=== PATIENT | female | born 1980 | race Caucasian/White ===

== ENCOUNTER → 2016-09-22 | Outpatient (CLI) | payer BC | LOC: HPND 08:44 | PROVIDERS: ATTEND Obstetrics & Gynecology | DX: O09.521 Supervision of elderly multigravida, first trimester (principal); O30.041 Twin pregnancy, dichorionic/diamniotic, first trimester; O09.291 Supervision of pregnancy with other poor reproductive or obstetric history, first trimester | CPT/HCPCS: 36416; 76813; 76814 ==

== ENCOUNTER → 2016-10-06 | Outpatient (CLI) | payer BC | LOC: HPND 13:33 | PROVIDERS: ATTEND Obstetrics & Gynecology | DX: O30.032 Twin pregnancy, monochorionic/diamniotic, second trimester (principal); O09.522 Supervision of elderly multigravida, second trimester; O34.212 Maternal care for vertical scar from previous cesarean delivery | CPT/HCPCS: 76815; 76817; 76820 ==

== ENCOUNTER → 2016-10-20 | Outpatient (CLI) | payer BC | LOC: HPND 13:34 | PROVIDERS: ATTEND Obstetrics & Gynecology | DX: O30.032 Twin pregnancy, monochorionic/diamniotic, second trimester (principal); O09.522 Supervision of elderly multigravida, second trimester; O34.212 Maternal care for vertical scar from previous cesarean delivery | CPT/HCPCS: 76811; 76812; 76817 ==

== ENCOUNTER → 2016-11-03 | Outpatient (CLI) | payer BC | LOC: HPND 13:34 | PROVIDERS: ATTEND Obstetrics & Gynecology | DX: O30.032 Twin pregnancy, monochorionic/diamniotic, second trimester (principal); O09.522 Supervision of elderly multigravida, second trimester; O36.5120 Maternal care for known or suspected placental insufficiency, second trimester, not applicable or unspecified | CPT/HCPCS: 76815; 76817 ==

== ENCOUNTER → 2016-11-17 | Outpatient (CLI) | payer BC | LOC: HPND 13:29 | PROVIDERS: ATTEND Obstetrics & Gynecology | DX: O09.522 Supervision of elderly multigravida, second trimester (principal); O36.5120 Maternal care for known or suspected placental insufficiency, second trimester, not applicable or unspecified; Z3A.21 21 weeks gestation of pregnancy | CPT/HCPCS: 76816; 76817; 76825; 76827; 93325 ==

== ENCOUNTER → 2016-12-01 | Outpatient (CLI) | payer BC | LOC: HPND 13:31 | PROVIDERS: ATTEND Obstetrics & Gynecology | DX: O30.032 Twin pregnancy, monochorionic/diamniotic, second trimester (principal); O09.522 Supervision of elderly multigravida, second trimester; O34.212 Maternal care for vertical scar from previous cesarean delivery; Z3A.00 Weeks of gestation of pregnancy not specified | CPT/HCPCS: 76815; 76817 ==

== ENCOUNTER → 2016-12-16 | Outpatient (CLI) | payer BC | LOC: HPND 12:13 | PROVIDERS: ATTEND Obstetrics & Gynecology | DX: O09.522 Supervision of elderly multigravida, second trimester (principal); O30.032 Twin pregnancy, monochorionic/diamniotic, second trimester; O34.212 Maternal care for vertical scar from previous cesarean delivery; Z3A.25 25 weeks gestation of pregnancy | CPT/HCPCS: 76816 ==

== ENCOUNTER → 2016-12-30 | Outpatient (CLI) | payer BC | LOC: HPND 13:01 | PROVIDERS: ATTEND Obstetrics & Gynecology | DX: O30.032 Twin pregnancy, monochorionic/diamniotic, second trimester (principal); O09.522 Supervision of elderly multigravida, second trimester; O34.212 Maternal care for vertical scar from previous cesarean delivery | CPT/HCPCS: 76815 ==

== ENCOUNTER → 2017-01-13 | Outpatient (CLI) | payer BC | LOC: HPND 07:49 | PROVIDERS: ATTEND Obstetrics & Gynecology | DX: O30.032 Twin pregnancy, monochorionic/diamniotic, second trimester (principal); O09.522 Supervision of elderly multigravida, second trimester; O34.212 Maternal care for vertical scar from previous cesarean delivery | CPT/HCPCS: 76816 ==

== ENCOUNTER 2017-02-18 05:35 | Inpatient (IN) | payer BC ==
[2017-02-18] VITALS (69 sets, daily range): BP systolic 91–122; BP diastolic 56–79; PULSE 67–104; RESP 16–18; TEMP 97.1–98.9; O2SAT 98–100
[~2017-02-18] VITALS: Ht 175.3 cm; Wt 95.3 kg
--- NOTE | 2017-02-18 06:10 | PD ---
HPI Chief Complaint contractions? Date Seen: Feb 18, 2017 Travel History International Travel<30 Days: No Contact w/Intl Traveler<30Days: No History of Present Illness HPI Ms. Nazario is a 36 yo [address] Campbell at 35 1/7 weeks ( VALERY 2016) presents with concern for contractions. Patient states that approximately 3AM this morning she began having stronger and more frequent contractions concerning her for possible labor. Patient states that she has periodically been having "Nehemias Thomason" contractions but these current contractions seem more significant to her. Patient also reported desire to bear down which concerned her. Patient does not report vaginal bleeding or loss of vaginal fluid. Patient reports normal movement. Patient does not report headache, visual changes, chest pain, shortness of breath, nausea/vomiting, or dysuria. Patient reports that she is scheduled for CS at 36 weeks due to history of abruption. Patient reports benign course thus far. Patient reports ultrasound studies have been reassuring regarding mono-di twins. [Per EMR, US 02/16 demonstrated the fetuses with normal CLIFF, normal BPP, and normal Doppler studies]. Para: 2 : 4 Miscarriage: 1 History Past Medical History Medical History: Denies Significant Hx Obstetric History Obstetric History 012 Prior at 38 weeks due to distress Repeat at 37 weeks due to placental abruption One miscarriage elevated 1 hr glucose this gestation Past Surgical History Narrative Surgical section 2 Family History Family History: Negative Social History Alcohol Use: No Tobacco Use: No Substance Abuse: No Review of Systems General / Constitutional: No: Fever Eyes: No: Blurred Vision HENT: No: Headaches Cardiovascular: No: Chest Pain or Discomfort Respiratory: No: Short of Breath Gastrointestinal: Abdominal Pain, No: Nausea, Vomiting Genitourinary: No: Urgency, Dysuria Skin: No Rash Neurologic: No: Weakness Psychiatric: No: Anxiety, Depression Physical Exam HR 93 BP 124/80 RR 18 HR 96 Narrative GENERAL: Well-nourished, well-developed patient. SKIN: Warm and dry. HEAD: Normocephalic and atraumatic. EYES: No scleral icterus. No injection or drainage. ENT: No nasal drainage noted. Mucous membranes pink. Airway patent. NECK: Supple, trachea midline. No JVD. CARDIOVASCULAR: Regular rate and rhythm without murmurs. RESPIRATORY: Breath sounds equal bilaterally. No accessory muscle use. EXTREMITIES: No cyanosis or edema. NEUROLOGICAL: Awake and alert. Motor and sensory function grossly within normal limits. ABDOMEN/GI: Abdomen soft, non-tender, bowel sounds present, no rebound, no guarding. Intermittent pain Gravid GENITOURINARY: External Genitalia: intact and normal in appearance Cervix: Dilatation: Closed Effacement: thick Station: [-] Presentation: [-] Membranes: Intact Uterine Contractions: q3 FHT's Red Category: 1 Baseline: 145 Reactive: Y Variability: Mod Decels: None FHT's Blue Category: 1 Baseline: 135 Reactive: Y Variability: Mod Decels: None MDM Medical Record Reviewed: Yes Narrative Course / MDM 36 [address] Campbell at 35 1/7 weeks ( [facility]ERY 03/25/2017) presents with concern for contractions. -Contractions every 3 minutes -[place]-di twins -Both twins with category 1 tracing -Cervix closed, high -Per patient, plan for CS at 36 wks due to PMH abruption and current twin gestation Plan: -Continue EFM -Will determine options of tocolysis vs. delivery pending discussion between Dr. Levi and Dr. Nancy Parrish,Konstantin Santo MD, R3 Feb 18, 2017 06:10
--- NOTE | 2017-02-18 07:06 | PD ---
HPI Chief Complaint Complains of contractions, twin gestation Date Seen: Feb 18, 2017 Travel History International Travel<30 Days: No Contact w/Intl Traveler<30Days: No History of Present Illness HPI Patient is 36-year-old white female A1 at 35 weeks with twins presents complaining of contractions. She has no bleeding or leakage of fluid. Baby is active. heart rate tracings are reactive. And she was christal on the monitor. Patient has a history of 2 C-sections and is planned scheduled for in 5 days when she'll be 36 weeks gestation and according the patient she's been sectioned early because of her history of placental abruption with her last baby did require an emergency also had a history of preeclampsia with her first baby that required a that time and she may have had an abruption as well at that time Para: 2 : 4 History Obstetric History Obstetric History Preeclampsia and placental abruption in the past She had 2 sections in the past She has mono chorionic diamniotic twins now Past Surgical History Narrative Surgical C-sections 2 Social History Alcohol Use: No Tobacco Use: No Substance Abuse: No Review of Systems General / Constitutional: No: Fever, Weight Gain, Chills, Other Eyes: No: Diploplia, Blurred Vision, Visual changes, Pain, Photophobia HENT: No: Headaches, Vertigo, Lightheadedness Cardiovascular: No: Irregular Rhythm, Chest Pain or Discomfort, Palpitations, Tachycardia, Syncope, Varicosities, Edema, Cyanosis Respiratory: No: Cough, Short of Breath, Other Gastrointestinal: Abdominal Pain, No: Nausea, Vomiting, Diarrhea Genitourinary: No: Decreased Urinary Output, Oliguria Musculoskeletal: No: Limited ROM, Weakness, Cramping, Edema, Pain Skin: No Rash, No Itching, No Dryness, No Lumps, No Change in Pigmentation, No Change in Nails, No Alopecia, No Lesions Neurologic: No: Weakness, Dizziness, Syncope, Focal Abnormalities, Coordination Problem, Headache, Slurred Speech, Seizures Psychiatric: No: Depression, Suicidal Ideations, Homicidal Ideation Endocrine: No: Heat Intolerance, Cold Intolerance, Polydipsia, Polyuria, Other Physical Exam Narrative GENERAL: Well-nourished, well-developed patient. SKIN: Warm and dry. HEAD: Normocephalic and atraumatic. EYES: No scleral icterus. No injection or drainage. ENT: No nasal drainage noted. Mucous membranes pink. Airway patent. NECK: Supple, trachea midline. No JVD. CARDIOVASCULAR: Regular rate and rhythm without murmurs, gallops, or rubs. RESPIRATORY: Breath sounds equal bilaterally. No accessory muscle use. BREASTS: Bilateral exam showed no masses , no retractions, no nipple discharge. ABDOMEN/GI: Abdomen soft, non-tender, bowel sounds present, no rebound, no guarding Gravid to [-40] weeks size Fundal Height: [40-]twins GENITOURINARY: External Genitalia: intact and normal in appearance BUS glands: [-] Cervix: [-Closed] Dilatation: [-] Closed Effacement: [-] Thick Station: [-High] Presentation: [-] Membranes: [intact ] Uterine Contractions: [q 3 min-] FHT's: Category: [-1] Baseline: [-135 /140] Reactive: [yes-] Variability: [mod-] Decels: [-none] EXTREMITIES: No cyanosis or edema. BACK: Nontender without obvious deformity. No CVA tenderness. NEUROLOGICAL: Awake and alert. Motor and sensory grossly within normal limits. Five out of 5 muscle strength in all muscle groups. Normal speech. MDM Interpretation(s) Patient is 36-year-old white female previous 2 at 35 weeks with twins now presents complaining of contractions. No leakage of fluid or bleeding noted. She is christal, and the baby's heart rate tracings are reactive. Patient states that if she was told she had contraction she was coming and having her and is what she wants I offered trying to tocolyse her with some fluid and terbutaline she will have none that so we will discuss her care with her primary precision assembler Plan Plan the patient to be admitted labor and delivery we'll discuss with her precision assembler her plan of care Diagnosis Diagnosis: Primary Impression: Multiple gestation Additional Impression: uterine contractions in third trimester, antepartum Jeremiah Levi II, MD Feb 18, 2017 07:05
[2017-02-18 08:14] LABS: AUTOMATED NEUTROPHIL # 7.5 TH/MM3 (1.8-7.7); BASOPHIL % 0.3 % (0.0-2.0); EOSINOPHIL # 0.1 TH/MM3 (0-0.4); EOSINOPHIL % 1.4 % (0.0-4.0); HEMATOCRIT 39.4 % (35.0-46.0); HEMO FLAGS DIFF FINAL; LYMPH % 16.7 % (9.0-44.0); LYMPHOCYTE # 1.7 TH/MM3 (1.0-4.8); MEAN CELL VOLUME 90.4 FL (80.0-100.0); MEAN CORPUSCULAR HEMOGLOBIN 30.7 PG (27.0-34.0); MONO % 7.6 % (0.0-8.0); PLATELET COUNT 151 TH/MM3 (150-450); RED BLOOD COUNT 4.35 MIL/MM3 (4.00-5.30); RED CELL DISTRIBUTION WIDTH 13.5 % (11.6-17.2); WHITE BLOOD COUNT 10.1 TH/MM3 (4.0-11.0)
[2017-02-18] MEDS ORDERED: LACTATED RINGER'S 1000 ML INJ 1,000 ML IV ONE (08:16)
[2017-02-18] MEDS ORDERED: LACTATED RINGER'S 1000 ML INJ 1,000 ML IV SCH ×2 (08:46→19:45)
[2017-02-18] MEDS ORDERED: ceFAZolin 2 GM PREMIX 50 ML IV SCH (09:30)
[2017-02-18] MEDS ORDERED: CITRIC ACID-SODIUM CITRATE LIQ 30 ML UDC PO SCH (10:00)
[2017-02-18] MEDS ORDERED: OXYTOCIN 10 UNIT/ML AMP ONE (11:47)
[2017-02-18] MEDS ORDERED: MORPHINE SULFATE PF 5 MG/10 ML VIAL ONE ×2 (13:05→13:50)
[2017-02-18] MEDS ORDERED: SODIUM CHLORIDE 0.9% FLUSH 10 ML FLUSH IV FLUSH PRN (14:45)
[2017-02-18] MEDS ORDERED: ONDANSETRON HCL 4 MG/2 ML VIAL IV PUSH PRN (14:45)
[2017-02-18] MEDS ORDERED: KETOROLAC TROMETHAMINE 60 MG/2 ML (IM) VIAL IM PRN (14:45)
[2017-02-18] MEDS ORDERED: SIMETHICONE 80 MG CHEWABLE TAB PO PRN (14:45)
[2017-02-18] MEDS ORDERED: ZOLPIDEM TARTRATE 5 MG TAB PO PRN (14:45)
[2017-02-18] MEDS ORDERED: OXYTOCIN 30 UNITS-500ML PREMIX 500 ML IV ONE (14:45)
[2017-02-18] MEDS ORDERED: ACETAMINOPHEN 325 MG TAB PO PRN (14:45)
[2017-02-18] MEDS ORDERED: OXYTOCIN 30 UNITS-500ML PREMIX 500 ML ONE (16:06)
[2017-02-18] MEDS ORDERED: EPIDURAL-DO NOT ADMINISTER ANTICOAGULANTS PRN (19:00)
[2017-02-18] MEDS ORDERED: EPIDURAL-DIPHENHYDRAMINE HCL 50 MG/ML VIAL IV PUSH PRN (19:00)
[2017-02-18] MEDS ORDERED: EPIDURAL-DIPHENHYDRAMINE HCL 50 MG CAP PO PRN (19:00)
[2017-02-18] MEDS ORDERED: EPIDURAL-NALOXONE HCL 0.4 MG/ML AMP IV PRN (19:00)
[2017-02-18] MEDS ORDERED: EPIDURAL-NO SYSTEMIC NARCOTICS PRN (19:00)
[2017-02-18] MEDS: SODIUM CHLORIDE 0.9% FLUSH 10 ML FLUSH IV FLUSH SCH (21:10)
[2017-02-19] MEDS ORDERED: OXYTOCIN 30 UNITS-500ML PREMIX 500 ML IV PRN (00:45)
[2017-02-19 04:00] VITALS: BP 93/62; PULSE 86; RESP 16; TEMP 97.7
[2017-02-19] MEDS: IBUPROFEN 600 MG TAB PO PRN ×3 (04:02→21:10)
[2017-02-19 05:53] LABS: AUTOMATED NEUTROPHIL # 8.7 TH/MM3 (1.8-7.7); BASOPHIL % 0.3 % (0.0-2.0); EOSINOPHIL # 0.2 TH/MM3 (0-0.4); EOSINOPHIL % 1.4 % (0.0-4.0); HEMATOCRIT 34.7 % (35.0-46.0); HEMO FLAGS DIFF FINAL; LYMPH % 13.6 % (9.0-44.0); LYMPHOCYTE # 1.5 TH/MM3 (1.0-4.8); MEAN CELL VOLUME 90.5 FL (80.0-100.0); MEAN CORPUSCULAR HEMOGLOBIN 30.2 PG (27.0-34.0); MEAN CORPUSCULAR HGB CONC 33.4 % (32.0-36.0); MONO % 6.2 % (0.0-8.0); NEUT % 78.5 % (16.0-70.0); PLATELET COUNT 123 TH/MM3 (150-450); RED BLOOD COUNT 3.84 MIL/MM3 (4.00-5.30); RED CELL DISTRIBUTION WIDTH 13.4 % (11.6-17.2); WHITE BLOOD COUNT 11.1 TH/MM3 (4.0-11.0)
[2017-02-19 08:40] VITALS: BP 91/64; PULSE 79; RESP 18; TEMP 97.5
--- NOTE | 2017-02-19 09:55 | MP ---
cc: ADY LYNN DATE OF SURGERY: 02/18/2017 PREOPERATIVE DIAGNOSIS Intrauterine at 35+ weeks, diamniotic monochorionic twins, previous section x2, in labor. POSTOPERATIVE DIAGNOSIS Intrauterine at 35+ weeks, diamniotic monochorionic twins, previous section x2, in labor. PROCEDURE Repeat lower segment transverse section via Pfannenstiel skin incision, bilateral tubal ligation via modified [place]. SURGEON Dr. Lynn ANESTHESIA Spinal by Dr. Nazario. FLUIDS 1600 cc crystalloids. ESTIMATED BLOOD LOSS 650 cc. URINE OUTPUT 75 cc clear yellow at the end of the procedure. FINDINGS A live male was delivered vertex presentation, weight 4 pounds 11 ounces. Baby male B was delivered vertex presentation, weight was 5 pounds 2 ounces. Normal fallopian tubes bilaterally. DETAILS OF PROCEDURE The patient was taken to the operating room where spinal anesthesia was found to be adequate. She was then prepped and draped in normal sterile fashion in the dorsal supine position with a leftward tilt. A Pfannenstiel skin incision was made with a scalpel and carried down to the underlying layer of fascia. The fascia was nicked in the midline. The incision was extended laterally with curved Sanchez scissors. Attention was turned to the inferior aspect of the incision which was grasped with Magaly clamps, elevated and the rectus muscles dissected off sharply. Attention was turned to the superior aspect of the incision which was grasped with Magaly clamps, elevated and the rectus muscles dissected off sharply. The rectus muscles were in the midline. The peritoneum was identified, grasped between two Shanthi clamps and entered sharply with Metzenbaum scissors. This incision was extended superiorly and inferiorly with good visualization of the bladder. The bladder blade was inserted. The vesicouterine peritoneum was noted to be high on the uterus. This was grasped with smooth pickups. The bladder flap was created sharply using Metzenbaum scissors. The lower uterine segment was noted to be thinned out and very attenuated. At this time one incision was made to enter. Clear amniotic fluid was noted. The incision was extended laterally with bandage scissors. Baby A was identified, vertex presentation, brought to the incision and delivered. Cord was clamped x2 and cut. The infant was handed off to the awaiting nurse. The membranes for baby B were ruptured. Baby B was delivered vertex presentation. The cord was clamped x2 and cut. The infant was handed off to the awaiting nurse. The placenta was delivered manually and sent for donation. The uterus was cleared of all clots and debris. The uterine incision was repaired in two layers with #1 Vicryl. Hemostasis was assured. The left fallopian tube was identified, brought to the incision with a Dariana clamp, followed out to the fimbriated end. A 2 cm portion was tied x2 with 0 plain and excised. The tube was sent to pathology. The tube was returned to the abdomen. The right fallopian tube was identified, grasped with a Dariana clamp, followed out to the fimbriated end. A 2 cm portion was tied and excised in a similar fashion. The tube was returned to the abdomen. The gutters were cleared of all clots and debris. The fascia was re-approximated in a running fashion with 0 Vicryl. The skin was closed with kennedy. A pressure dressing was applied. Sponge, lap, needle and instrument counts were correct x3. The patient was transferred to the recovery room in stable condition. MD MARICEL Rodney/JAVIER /2:41 PM /9:40 AM
--- NOTE | 2017-02-19 10:11 | HHI.OB ---
Subjective Post Operative Day: 1 Remarks HAd n/v last night but she is feeling better this am; tolerated clear breakfast. She has ambulated, yet to void. Objective Vitals/I&O Vital Signs Date Time Temp Pulse Resp B/P Pulse Ox O2 Delivery O2 Flow Rate FiO2 02/19/17 08:40 97.5 79 18 91/64 02/19/17 04:00 97.7 86 16 93/62 02/18/17 22:40 67 16 101/57 02/18/17 22:40 97.1 02/18/17 20:51 98.9 76 16 96/60 02/18/17 16:45 97.9 76 16 98/67 02/18/17 16:01 97.7 83 18 91/56 100 02/18/17 15:45 80 18 96/56 99 02/18/17 15:35 84 02/18/17 15:33 18 93/58 98 02/18/17 15:19 88 18 98/57 99 02/18/17 15:02 97.7 02/18/17 15:00 78 97/57 02/18/17 15:00 18 100 02/18/17 13:25 96 02/18/17 13:20 90 02/18/17 13:15 94 02/18/17 13:10 98 02/18/17 13:00 96 02/18/17 12:55 94 02/18/17 12:50 87 02/18/17 12:45 95 02/18/17 12:40 95 02/18/17 12:35 87 02/18/17 12:30 94 02/18/17 12:25 91 02/18/17 12:20 92 02/18/17 12:15 95 02/18/17 12:10 97 02/18/17 12:05 95 02/18/17 12:00 89 02/18/17 11:57 98.6 02/18/17 11:55 92 02/18/17 11:55 18 122/79 02/18/17 11:50 90 02/18/17 11:45 100 02/18/17 11:40 90 02/18/17 11:35 98 02/18/17 11:30 104 02/18/17 10:40 90 02/18/17 10:35 95 02/18/17 10:30 92 02/18/17 10:25 90 02/18/17 10:20 92 02/18/17 10:15 92 02/18/17 10:10 100 Result Diagram: 02/19/17 0505 Objective Remarks GENERAL: Well-nourished, well-developed patient. CARDIOVASCULAR: Regular rate and rhythm without murmurs, gallops, or rubs. RESPIRATORY: Breath sounds equal bilaterally. No accessory muscle use. ABDOMEN/GI: Abdomen soft, non-tender, bowel sounds present. Incision: dressing Clean, dry and intact. Fundus: Firm, non-tender at umbilicus. GENITOURINARY: Light to moderate bleeding. EXTREMITIES: No cyanosis or edema, non-tender, without signs of DVT. Medications and IVs Current Medications Medications (Trade) Dose Ordered Sig/Melida Route Start Time Stop Time Status Last Admin (Lr 1000 ml Inj) 1,000 ml @ 100 mls/hr Q10H IV 02/18/17 19:45 02/19/17 15:44 02/18/17 21:00 (NS Flush) 2 ml BID IV FLUSH 02/18/17 21:00 02/18/17 21:10 (NS Flush) 2 ml UNSCH PRN IV FLUSH 02/18/17 14:45 (Mylicon Chew) 80 mg QID PRN PO 02/18/17 14:45 (Tylenol) 650 mg Q6H PRN PO 02/18/17 14:45 (Motrin) 600 mg Q6H PRN PO 02/18/17 14:45 02/19/17 04:02 (Percocet 5-325 Mg) 1 tab Q4H PRN PO 02/18/17 14:45 (Percocet 5-325 Mg) 2 tab Q4H PRN PO 02/18/17 14:45 (Aditi-Colace) 2 tab Q12H PRN PO 02/18/17 14:45 (Ambien) 5 mg HS PRN PO 02/18/17 14:45 (M-M-R Ii Inj) 0.5 ml ONCE ONCE SQ 02/19/17 16:00 02/19/17 16:01 (Boostrix Inj) 0.5 ml ONCE ONCE IM 02/19/17 16:00 02/19/17 16:01 (Zofran Inj) 4 mg Q6H PRN IV PUSH 02/18/17 14:45 02/18/17 21:07 Miscellaneous Information NO SYSTEMIC NARCOTICS TO BE GIVEN FO... UNSCH PRN .XX 02/18/17 19:00 02/19/17 18:59 (Narcan Inj) 0.4 mg UNSCH PRN IV 02/18/17 19:00 02/19/17 18:59 (Benadryl Inj) 25 mg Q6H PRN IV PUSH 02/18/17 19:00 02/19/17 18:59 (Benadryl) 50 mg Q6H PRN PO 02/18/17 19:00 02/19/17 18:59 Miscellaneous Information ALL NURSING DEPARTMENTS UNSCH PRN .XX 02/18/17 19:00 02/19/17 18:59 Assessment/Plan Problem List: (1) S/P repeat low transverse (2) Sterilization Assessment and Plan POD 1 s/p rltcd and btl. doing well, will increase ambulation and try to void. Will remove dressing after shower Verona Campbell MD Feb 19, 2017 10:11
[2017-02-19] MEDS ORDERED: IBUP-232 PO (15:38)
[2017-02-19] MEDS ORDERED: SENN1TAB PO (15:38)
[2017-02-19] MEDS ORDERED: OXYC1TAB63 PO (15:38)
--- NOTE | 2017-02-19 15:40 | HHI.DCPOC ---
Discharge Care Plan Diagnosis: (1) S/P repeat low transverse (2) Sterilization Your Health Problems Are: delivery Report Symptoms to Your Doctor -Temperature above 100.5 degrees -Redness, of incision or excessive or foul smelling drainage -Unusual pain or calf pain -Increased vaginal bleeding -Painful or difficulty urinating -Feelings of extreme sadness or anxiety after 2 weeks Goals to Promote Your Health * To prevent worsening of your condition and complications * To maintain your health at the optimal level Directions to Meet Your Goals Take your medications as prescribed Follow your dietary instruction Follow activity as directed Ensure plenty of rest for recovery Drink fluids for hydration Keep your appointments as scheduled Take your immunizations and boosters as scheduled If your symptoms worsen call your PCP, if no PCP go to Urgent Care Center or Emergency Room Smoking is Dangerous to Your Health. Avoid second hand smoke Call the 24-hour crisis hotline for domestic abuse at Verona Campbell MD Feb 19, 2017 15:40
[2017-02-19] MEDS ORDERED: DIPHTH/TETANUS/ACEL PERTUSSIS (BOOSTER) 0.5 ML VIAL/PFS IM ONE (16:00)
[2017-02-19] MEDS ORDERED: MEASLES, MUMPS, RUBELLA VACCINE 0.5 ML VIAL SQ ONE (16:00)
[2017-02-19] MEDS: oxyCODONE/ACETAMINOPHEN 5 MG/325 MG TAB PO PRN (21:11)
[2017-02-19] MEDS: DOCUSATE SODIUM 50 MG/SENNA 8.6 MG TAB PO PRN (21:14)
[2017-02-19 21:17] VITALS: BP 108/73; PULSE 88; RESP 18; TEMP 98.2
[2017-02-20] MEDS: oxyCODONE/ACETAMINOPHEN 5 MG/325 MG TAB PO PRN ×4 (04:42→21:45)
[2017-02-20] MEDS: IBUPROFEN 600 MG TAB PO PRN ×4 (04:42→21:46)
[2017-02-20 08:07] VITALS: BP 108/68; PULSE 80; RESP 16; TEMP 98
[2017-02-20] MEDS: DOCUSATE SODIUM 50 MG/SENNA 8.6 MG TAB PO PRN (10:35)
--- NOTE | 2017-02-20 12:00 | HHI.OB ---
Subjective Post Operative Day: 2 Remarks tries to take only one percocet instead of 2,but is in pain now. she is ambulating , voiding, passing flatus. babies are in room w her. Objective Vitals/I&O Vital Signs Date Time Temp Pulse Resp B/P Pulse Ox O2 Delivery O2 Flow Rate FiO2 02/20/17 08:07 98.0 80 16 108/68 02/19/17 21:17 98.2 88 18 108/73 Result Diagram: 02/19/17 0505 Objective Remarks GENERAL: Well-nourished, well-developed patient. CARDIOVASCULAR: Regular rate and rhythm without murmurs, gallops, or rubs. RESPIRATORY: Breath sounds equal bilaterally. No accessory muscle use. ABDOMEN/GI: Abdomen soft, non-tender, bowel sounds present. Incision: dry and intact.kennedy in place Fundus: Firm, non-tender at umbilicus. GENITOURINARY: Light to moderate bleeding. EXTREMITIES: No cyanosis or edema, non-tender, without signs of DVT. Medications and IVs Current Medications Medications (Trade) Dose Ordered Sig/Melida Route Start Time Stop Time Status Last Admin (NS Flush) 2 ml BID IV FLUSH 02/18/17 21:00 02/18/17 21:10 (NS Flush) 2 ml UNSCH PRN IV FLUSH 02/18/17 14:45 (Mylicon Chew) 80 mg QID PRN PO 02/18/17 14:45 (Tylenol) 650 mg Q6H PRN PO 02/18/17 14:45 (Motrin) 600 mg Q6H PRN PO 02/18/17 14:45 02/20/17 10:36 (Percocet 5-325 Mg) 1 tab Q4H PRN PO 02/18/17 14:45 02/20/17 10:36 (Percocet 5-325 Mg) 2 tab Q4H PRN PO 02/18/17 14:45 02/20/17 04:42 (Aditi-Colace) 2 tab Q12H PRN PO 02/18/17 14:45 02/20/17 10:35 (Ambien) 5 mg HS PRN PO 02/18/17 14:45 (Zofran Inj) 4 mg Q6H PRN IV PUSH 02/18/17 14:45 02/18/17 21:07 Assessment/Plan Problem List: (1) S/P repeat low transverse (2) Sterilization Assessment and Plan POD 2 s/p rltcd and btl mono di twins. doing well,will take percocet and ibuprofen scheduled for better pain control dispo home Verona Vasquez MD Feb 20, 2017 12:00
[2017-02-20] MEDS: SODIUM CHLORIDE 0.9% FLUSH 10 ML FLUSH IV FLUSH SCH (20:33)
[2017-02-20 21:46] VITALS: BP 102/70; PULSE 79; RESP 20; TEMP 98
[2017-02-21] MEDS: DOCUSATE SODIUM 50 MG/SENNA 8.6 MG TAB PO PRN (04:26)
[2017-02-21] MEDS: IBUPROFEN 600 MG TAB PO PRN ×2 (04:28→10:40)
[2017-02-21] MEDS: oxyCODONE/ACETAMINOPHEN 5 MG/325 MG TAB PO PRN ×2 (04:28→10:40)
--- NOTE | 2017-02-21 05:18 | HHI.OB ---
Subjective Post Operative Day: 3 Remarks feeling much better today Objective Vitals/I&O Vital Signs Date Time Temp Pulse Resp B/P Pulse Ox O2 Delivery O2 Flow Rate FiO2 02/20/17 21:46 102/70 02/20/17 21:46 98.0 79 20 02/20/17 08:07 98.0 80 16 108/68 Result Diagram: 02/19/17 0505 Objective Remarks GENERAL: Well-nourished, well-developed patient. CARDIOVASCULAR: Regular rate and rhythm without murmurs, gallops, or rubs. RESPIRATORY: Breath sounds equal bilaterally. No accessory muscle use. ABDOMEN/GI: Abdomen soft, non-tender, bowel sounds present. Incision: dry and intact.kennedy in place Fundus: Firm, non-tender at umbilicus. GENITOURINARY: Light to moderate bleeding. EXTREMITIES: No cyanosis or edema, non-tender, without signs of DVT. Medications and IVs Current Medications Medications (Trade) Dose Ordered Sig/Melida Route Start Time Stop Time Status Last Admin (NS Flush) 2 ml BID IV FLUSH 02/18/17 21:00 02/18/17 21:10 (NS Flush) 2 ml UNSCH PRN IV FLUSH 02/18/17 14:45 (Mylicon Chew) 80 mg QID PRN PO 02/18/17 14:45 (Tylenol) 650 mg Q6H PRN PO 02/18/17 14:45 (Motrin) 600 mg Q6H PRN PO 02/18/17 14:45 02/21/17 04:28 (Percocet 5-325 Mg) 1 tab Q4H PRN PO 02/18/17 14:45 02/20/17 10:36 (Percocet 5-325 Mg) 2 tab Q4H PRN PO 02/18/17 14:45 02/21/17 04:28 (Aditi-Colace) 2 tab Q12H PRN PO 02/18/17 14:45 02/21/17 04:26 (Ambien) 5 mg HS PRN PO 02/18/17 14:45 (Zofran Inj) 4 mg Q6H PRN IV PUSH 02/18/17 14:45 02/18/17 21:07 Assessment/Plan Problem List: (1) S/P repeat low transverse (2) Sterilization Assessment and Plan POD 3 s/p rltcd and btl mono di twins. doing well, remove kennedy today and f/u in 1 wk. dispo home ppd3 Verona Campbell MD Feb 21, 2017 05:18
[2017-02-21 07:30] VITALS: BP 107/64; PULSE 76; RESP 22; TEMP 98
== END 2017-02-21 16:00 | disposition home or self-care (01) | DRG 765 ==
LOC: HOBED 05:35 → H2EB 07:22 → H1EA 16:24
PROVIDERS: ADMIT Obstetrics & Gynecology; ATTEND Obstetrics & Gynecology
PROC: 10D00Z1 Extraction of Products of Conception, Low, Open Approach (ICD-10-PCS; principal; 2017-02-18)
PROC: 0UB70ZZ Excision of Bilateral Fallopian Tubes, Open Approach (ICD-10-PCS; 2017-02-18)
DX: O34.211 Maternal care for low transverse scar from previous cesarean delivery (principal); O30.033 Twin pregnancy, monochorionic/diamniotic, third trimester; Z37.2 Twins, both liveborn; Z3A.35 35 weeks gestation of pregnancy; Z30.2 Encounter for sterilization; O09.523 Supervision of elderly multigravida, third trimester
CPT/HCPCS: 59025; 76818; 76820; 85025; 86850; 86900; 86901; 88302; J0690; J2274; J2405; J2590; J7120